=== PATIENT | male | born 1950 | race Two or more races ===

== ENCOUNTER 2019-04-01 17:34 | Inpatient (IN) | payer OTHER ==
[~2019-04-01] VITALS: Ht 170.2 cm; Wt 56.0 kg
[~2019-04-01 17:34] MED LIST: AMLO-147 PO; ASPI-817 PO; ATOR-2 PO; BENA40TA56 PO; DIPH25CA6 PO; SERT25TA83 PO
[2019-04-01 20:55] VITALS: BP 176/81; PULSE 64; RESP 18
[2019-04-01 21:00] VITALS: Ht 170.2 cm; Wt 56.0 kg
[2019-04-01] MEDS ORDERED: ONDANSETRON 4 MG INJ IV PRN (22:00)
[2019-04-01] MEDS ORDERED: ACETAMINOPHEN 325 MG TAB PO PRN (22:00)
[2019-04-01] MEDS ORDERED: NACL 0.9% 3 ML SYG IV SCH (22:00)
[2019-04-01] MEDS ORDERED: DIPHENHYDRAMINE 25 MG CAP PO PRN (22:00)
--- NOTE | 2019-04-01 22:34 | HP ---
Date/Time of Note Date/Time of Note DATE: 04/01/19 TIME: 22:34 Assessment/Plan VTE Prophylaxis Pharmacological prophylaxis: heparin Assessment/Plan Assessment/Plan 1. Recurrent syncope -Brain MRI/MRA in 2016 showed mild to moderate stenosis of cavernous and supraclinoid segments of the internal carotid arteries. -Patient claimed that he had an MRI 6-month ago. Currently unable to tell me where exactly was done. If he or family remembers during the day, will have the results faxed over here -Order CT angiogram or MRA of the head and neck 2. Bilateral foot numbness/weakness: No weakness or decrease in sensation on physical exam -This is chronic and has been going on for the past 3 years. Gabapentin was initiated by PCP without improvement -Check vitamin B12, folate, TSH -Consider neurology consult 3. Intermittent blurry vision -Follow-up head imaging as mentioned #1 4. CKD: Monitor closely Results 24hrs Laboratory Tests Test 04/01/19 21:49 Bedside Glucose 86 HPI/ROS Admit Date/Time Admit Date/Time Apr 01, 2019 at 20:50 Hx of Present Illness Patient is a 77-year-old male with a history of CKD, carotid stenosis who initially presented on outside hospital complaining of loss of consciousness. He was at a bookstore when he felt dizzy/lightheaded and had a syncopal episode. Denied any chest pain, shortness of breath or palpitations. Patient was admitted here for syncope in 2016. At that time carotid ultrasound shows stenosis 60-69%. Brain MRI/MRA at that time showed Mild to moderate stenosis of cavernous and supraclinoid segments of the internal carotid arteries.. He said he has occasionally been having similar symptoms since 2016. He said he had a brain MRI about 6 months ago but he was not able to tell me exactly where. He also complains of bilateral foot numbness and weakness for the past 3 years. He said he was started on gabapentin without relief. On further questioning, he also reported of occasional blurry vision and seeing " stars" PMH/Family/Social Past Medical History Past Surgical Hx: other (see HPI) Family History Significant Family History: no pertinent family hx Social History Alcohol Use: none Smoking Status: Never smoker Drug Use: none Exam Constitutional: No acute distress Head: normocephalic, atraumatic Eyes: EOMI, PERRL Respiratory: no distress Cardiovascular: regular rate and rhythm Gastrointestinal: soft Extremities: normal pulses Medications Current Medications IV Flush (NS 3 ml) 3 ml PER PROTOCOL IV ; Start 04/01/19 at 22:00 Ondansetron HCl (Zofran Inj) 4 mg Q6H PRN IV NAUSEA/VOMITING; Start 04/01/19 at 22:00 Aspirin (Aspirin) 81 mg DAILY PO ; Start 04/02/19 at 09:00 Acetaminophen (Tylenol Tab) 650 mg Q6H PRN PO .PAIN 1-3 OR TEMP; Start 04/01/19 at 22:00 Amlodipine Besylate (Norvasc) 10 mg DAILY PO ; Start 04/02/19 at 09:00 Atorvastatin Calcium (Lipitor) 80 mg HS PO ; Start 04/02/19 at 21:00 Benazepril HCl (Lotensin) 40 mg DAILY PO ; Start 04/02/19 at 09:00 Diphenhydramine HCl (Benadryl) 25 mg QHS PRN PO ITCHING; Start 04/01/19 at 22:00 Sertraline HCl (Zoloft) 25 mg DAILY PO ; Start 04/02/19 at 09:00 Coded Allergies: No Known Allergy (Unverified , 09/04/16) Family History Significant Family History: no pertinent family hx Exam/Review of Systems Vital Signs Vitals Vital Signs Date Temp Pulse Resp B/P (MAP) Pulse Ox O2 O2 Flow FiO2 Time Delivery Rate 04/01/19 98.1 64 18 176/81 97 Room Air 20:55 (112) ZENOBIA BLANK MD Apr 01, 2019 22:34
[2019-04-02] VITALS (8 sets, daily range): BP systolic 115–170; BP diastolic 63–74; PULSE 52–63; RESP 16–18
[2019-04-02] MEDS ORDERED: SOD CHLORIDE 0.9% 500 ML IV ONE (02:00)
[2019-04-02] MEDS ORDERED: ASPIRIN (EC) 81 MG TAB PO SCH (09:00)
[2019-04-02] MEDS: SERTRALINE 50 MG TAB PO SCH (09:22)
[2019-04-02] MEDS: BENAZEPRIL 40 MG TAB PO SCH (09:22)
[2019-04-02] MEDS: AMLODIPINE 10 MG TAB PO SCH (09:23)
[2019-04-02] MEDS: ASPIRIN 81 MG TAB PO SCH (09:23)
--- NOTE | 2019-04-02 14:26 | PN ---
Date/Time of Note Date/Time of Note DATE: 04/02/19 TIME: 14:15 Assessment/Plan VTE Prophylaxis Risk score (from Ns)>0 risk: 3 SCD applied (from Ns): Yes Pharmacological prophylaxis: other Pharm contraindication: low risk/ambulating Lines/Catheters [facility] Sal[facility] Assessment/Plan Assessment/Plan 1. Recurrent syncope, with carotid stenosis, MRA to evaluate the severity, follow up with MRI 2. Intermittent blurry vision, follow up with MRI 3. CKD, stage 3, follow up with BMP 4. Normocytic anemia, CKD related, follow up with H/H 5. Bilateral foot numbness/weakness, probably peripheral neuropathy 6. HTN, on norvasc and benazepril 7. Dyslipidemia, on lipitor 8. DVT prophylaxis: SCDs Result Diagram: 04/02/195604/02/1956 Results 24hrs Laboratory Tests Test 04/01/19 21:49 04/02/19 00:57 04/02/19 05:52 Bedside Glucose 86 White Blood Count 9.4 Red Blood Count 3.55 L Hemoglobin 10.5 L Hematocrit 32.4 L Mean Corpuscular Volume 91.3 Mean Corpuscular Hemoglobin 29.6 Mean Corpuscular Hemoglobin Concent 32.4 Red Cell Distribution Width 15.0 H Platelet Count 96 L Mean Platelet Volume 11.8 H Immature Granulocytes % 0.300 Neutrophils % 60.8 Lymphocytes % 24.4 Monocytes % 8.8 Eosinophils % 5.3 Basophils % 0.4 Nucleated Red Blood Cells % 0.0 Immature Granulocytes # 0.030 Neutrophils # 5.7 Lymphocytes # 2.3 Monocytes # 0.8 Eosinophils # 0.5 Basophils # 0.0 Nucleated Red Blood Cells # 0.0 Sodium Level 142 Potassium Level 4.8 Chloride Level 114 H Carbon Dioxide Level 21 Anion Gap 7 Blood Urea Nitrogen 47 H Creatinine 2.34 H Est Glomerular Filtrat Rate mL/min Glucose Level 97 Hemoglobin A1c 5.9 Calcium Level 9.1 Magnesium Level 1.9 Total Bilirubin 0.4 Direct Bilirubin 0.00 Indirect Bilirubin 0.4 Aspartate Amino Transf (AST/SGOT) 30 Alanine Aminotransferase (ALT/SGPT) 25 Alkaline Phosphatase 69 Creatine Kinase 416 H 386 H Creatine Kinase Index 1.6 1.5 Creatinine Kinase MB (Mass) 6.56 H 5.90 H Troponin I < 0.012 0.015 Total Protein 7.2 Albumin 3.8 Globulin 3.40 H Albumin/Globulin Ratio 1.11 Thyroid Stimulating Hormone (TSH) 1.780 Subjective 24 Hr Interval Summary Free Text/Dictation no dizziness today. numbness on both feet Exam/Review of Systems Exam Vitals Vital Signs Date Temp Pulse Resp B/P (MAP) Pulse Ox O2 O2 Flow FiO2 Time Delivery Rate 04/02/19 98.0 62 18 151/73 98 12:46 (99) 04/02/19 Room Air 04:16 Intake and Output 04/01/19 04/01/19 04/02/19 1515:00 23:00 07:00 IntakeIntake Total 240 ml 800 ml BalanceBalance 240 ml 800 ml Constitutional: alert, oriented, well developed Psych: no complaints Head: normocephalic, atraumatic Eyes: nl conjunctiva, EOMI, nl lids ENMT: nl external ears & nose, nl lips & teeth, nl nasal mucosa & septum Neck: supple, non-tender Respiratory: clear to auscultation, normal air movement; No congested cough, No crackles/rales, No diminished breath sounds, No intercostal retraction, No labored breathing, No respirations, No tactile fremitus, No wheezing, No other Cardiovascular: regular rate and rhythm, nl pulses; No bruits, No diastolic murmur, No edema, No gallop, No irregular rhythm, No jugular venous distention (JVD), No murmurs/extra sounds, No rub, No systolic murmur, No S3, No S4, No other Gastrointestinal: soft, nl liver, spleen, non-tender Musculoskeletal: nl extremities to inspection Extremities: normal pulses; No calf tenderness, No cyanosis, No clubbing, No edema, No pitting pedal edema, No palpable cord, No tenderness, No other Neurological: RECRUITMENT ASSISTANT II-XII intact, nl mental status, nl speech, nl strength Skin: nl turgor Results Results 24hrs Laboratory Tests Test 04/01/19 21:49 04/02/19 00:57 04/02/19 05:52 Bedside Glucose 86 White Blood Count 9.4 Red Blood Count 3.55 L Hemoglobin 10.5 L Hematocrit 32.4 L Mean Corpuscular Volume 91.3 Mean Corpuscular Hemoglobin 29.6 Mean Corpuscular Hemoglobin Concent 32.4 Red Cell Distribution Width 15.0 H Platelet Count 96 L Mean Platelet Volume 11.8 H Immature Granulocytes % 0.300 Neutrophils % 60.8 Lymphocytes % 24.4 Monocytes % 8.8 Eosinophils % 5.3 Basophils % 0.4 Nucleated Red Blood Cells % 0.0 Immature Granulocytes # 0.030 Neutrophils # 5.7 Lymphocytes # 2.3 Monocytes # 0.8 Eosinophils # 0.5 Basophils # 0.0 Nucleated Red Blood Cells # 0.0 Sodium Level 142 Potassium Level 4.8 Chloride Level 114 H Carbon Dioxide Level 21 Anion Gap 7 Blood Urea Nitrogen 47 H Creatinine 2.34 H Est Glomerular Filtrat Rate mL/min Glucose Level 97 Hemoglobin A1c 5.9 Calcium Level 9.1 Magnesium Level 1.9 Total Bilirubin 0.4 Direct Bilirubin 0.00 Indirect Bilirubin 0.4 Aspartate Amino Transf (AST/SGOT) 30 Alanine Aminotransferase (ALT/SGPT) 25 Alkaline Phosphatase 69 Creatine Kinase 416 H 386 H Creatine Kinase Index 1.6 1.5 Creatinine Kinase MB (Mass) 6.56 H 5.90 H Troponin I < 0.012 0.015 Total Protein 7.2 Albumin 3.8 Globulin 3.40 H Albumin/Globulin Ratio 1.11 Thyroid Stimulating Hormone (TSH) 1.780 Medications Medication Current Medications IV Flush (NS 3 ml) 3 ml PER PROTOCOL IV ; Start 04/01/19 at 22:00 Ondansetron HCl (Zofran Inj) 4 mg Q6H PRN IV NAUSEA/VOMITING; Start 04/01/19 at 22:00 Aspirin (Aspirin) 81 mg DAILY PO Last administered on 04/02/19at 09:23; Admin Dose 81 MG; Start 04/02/19 at 09:00 Acetaminophen (Tylenol Tab) 650 mg Q6H PRN PO .PAIN 1-3 OR TEMP; Start 04/01/19 at 22:00 Amlodipine Besylate (Norvasc) 10 mg DAILY PO Last administered on 04/02/19at 09:23; Admin Dose 10 MG; Start 04/02/19 at 09:00 Atorvastatin Calcium (Lipitor) 80 mg HS PO ; Start 04/02/19 at 21:00 Benazepril HCl (Lotensin) 40 mg DAILY PO Last administered on 04/02/19at 09:22; Admin Dose 40 MG; Start 04/02/19 at 09:00 Diphenhydramine HCl (Benadryl) 25 mg QHS PRN PO ITCHING; Start 04/01/19 at 22:00 Sertraline HCl (Zoloft) 25 mg DAILY PO Last administered on 04/02/19at 09:22; Admin Dose 25 MG; Start 04/02/19 at 09:00 ALEXIS BOWDEN MD Apr 02, 2019 14:26
--- NOTE | 2019-04-02 18:09 | RADRPT ---
Echocardiogram Report Patient Name: JEFF JACKSONPatient ID: [id number] : [id number] (69y 2m)Study Date: 04/02/2019 9:54:14 AM Gender: MAccession #: [id number] Tech: Bro Yu [facility] Location: [facility] Ref.Physician: ZENOBIA BLANK Height(Cm): BSA: Weight(Kg): Quality: AdequateOrder Physician: ZENOBIA BLANK Account #: Procedures: Echocardiographic Report: Transthoracic echocardiogram with complete 2D, M-Mode, and doppler examination. Indications: Syncope. Measurements: 2D/M Mode Doppler Measurement Value Normal Range Measurement Value Normal Range LVIDd 2D 3.8 [ 4.2 - 5.8 ] cm AV Peak Jayant 1.5 [ 100.0 - 170.0 ] cm/sec LVIDs 2D 2.4 [ 2.5 - 4.0 ] cm AV Peak PG 9.0 [ 2.0 - 9.0 ] mmHg LVPWd 2D 1.0 [ 0.6 - 1.0 ] cm LVOT Peak Jayant 1.3 [ 70.0 - 110.0 ] cm/sec IVSd 2D 1.2 [ 0.6 - 1.0 ] cm LVOT Peak PG 7.0 [ 2.0 - 6.0 ] mmHg AoR Diam 2D 2.3 [ 2.6 - 3.4 ] cm MV E Peak Jayant 0.9 [ 60.0 - 130.0 ] cm/sec EDV 2D 60.0 [ 62.0 - 150.0 ] ml MV A Peak Jayant 0.8 [ 100.0 - 120.0 ] cm/sec ESV 2D 20.2 [ 21.0 - 61.0 ] ml MV E/A 1.2 [ 0.8 - 1.5 ] ratio EF 2D 66.3 [ 52.0 - 72.0 ] percent MV Decel Time 151 [ 104 - 258 ] msec LA Dimen 2D 3.1 [ 3.0 - 4.0 ] cm Lat E` Jayant 0.1 [ 10.0 - 15.0 ] cm/sec Lateral E/E` 11.7 [ 1.0 - 2.0 ] ratio Med E` Jayant 0.1 cm/sec MV E/A 1.2 [ 0.8 - 1.5 ] ratio TR Peak Jayant 2.5 [ 100.0 - 280.0 ] cm/sec TR Peak PG 25.0 mmHg RVSP 28.0 [ 10.0 - 36.0 ] mmHg Findings: Left Ventricle: Normal left ventricular systolic function. Normal left ventricular cavity size. Mild hypertrophy of the basal septum. Ejection fraction is visually estimated at 65 %. Tissue Doppler/Mitral Doppler indices are consistent with impaired relaxation (Stage I diastolic dysfunction). No left ventricular outflow tract obstruction. Right Ventricle: Normal right ventricular size. Normal right ventricular systolic function. Left Atrium: The left atrium is normal in size. Right Atrium: The right atrium is normal in size. Mitral Valve: Mild mitral leaflet calcification. Mild mitral annular calcification. Trace mitral regurgitation. Aortic Valve: No significant aortic stenosis or insufficiency. Aortic cusps appear mildly calcified. Tricuspid Valve: Normal appearance of the tricuspid valve. The estimated Peak RVSP is 28 mmHg. There is mild tricuspid regurgitation. Pulmonic Valve: Pulmonic valve not well visualized. Pericardium: Normal pericardium with no significant pericardial effusion. Aorta: Normal aortic root. IVC: Normal size and normal respiratory collapse consistent with normal right atrial pressure. Conclusions: Basal septal hypertrophy with normal systolic function. Grade 1 diastolic dysfunction. Trace mitral regurgitation. Mild tricuspid regurgitation with normal pulmonary pressures. Electronically Signed By: Tammy Jiménez 2019-04-02 18:08:05 PDT
[2019-04-02] MEDS: ATORVASTATIN 80 MG TAB PO SCH (21:30)
[2019-04-03] VITALS (9 sets, daily range): BP systolic 99–170; BP diastolic 57–79; PULSE 56–89; RESP 15–22
[2019-04-03] MEDS ORDERED: hydrALAzine 20 MG INJ IV ONE (01:30)
[2019-04-03] MEDS: SERTRALINE 50 MG TAB PO SCH (09:30)
[2019-04-03] MEDS: AMLODIPINE 10 MG TAB PO SCH (09:30)
[2019-04-03] MEDS: BENAZEPRIL 40 MG TAB PO SCH (09:30)
[2019-04-03] MEDS: ASPIRIN 81 MG TAB PO SCH (09:30)
--- NOTE | 2019-04-03 13:25 | PN ---
Date/Time of Note Date/Time of Note DATE: 04/03/19 TIME: 13:12 Assessment/Plan VTE Prophylaxis Risk score (from Ns)>0 risk: 3 SCD applied (from Ns): Yes Pharmacological prophylaxis: heparin Lines/Catheters IV Catheter Type (from Nrs): Saline Lock Assessment/Plan Assessment/Plan 1. Recurrent syncope, ? etiology, will discuss with stores assistant and neurologist 2. Bilateral intracranial moderate to severe bilateral intracranial internal carotid artery, neurology consult 3. Intraventricular septal hypertrophy, sent message to Dr. Jiménez to review the echo to check if it is severe enough to cause syncope, change norvasc to cardizem 4. CKD, stage 3, follow up with BMP 5. Normocytic anemia, CKD related, follow up with H/H 6. Bilateral foot numbness/weakness, probably peripheral neuropathy 7. HTN, on norvasc and benazepril 8. Dyslipidemia, on lipitor 9. DVT prophylaxis: heparin Result Diagram: 04/02/19 0057 04/03/19 0539 Results 24hrs Laboratory Tests Test 04/03/19 05:39 Sodium Level 141 Potassium Level 4.5 Chloride Level 114 H Carbon Dioxide Level 19 L Anion Gap 8 Blood Urea Nitrogen 36 #H Creatinine 1.97 H Est Glomerular Filtrat Rate mL/min Glucose Level 99 Calcium Level 9.5 Triglycerides Level 79 Cholesterol Level 116 LDL Cholesterol, Calculated 41 HDL Cholesterol 59 Cholesterol/HDL Ratio 1.9 Vitamin B12 Level 368 Folate 8.7 Subjective 24 Hr Interval Summary Free Text/Dictation no event, no syncope Exam/Review of Systems Exam Vitals Vital Signs Date Temp Pulse Resp B/P (MAP) Pulse Ox O2 O2 Flow FiO2 Time Delivery Rate 04/03/19 98.1 67 16 99/57 (71) 99 11:27 04/03/19 Room Air 07:22 Intake and Output 04/02/19 04/02/19 04/03/19 1414:59 22:59 06:59 IntakeIntake Total 720 ml 360 ml OutputOutput Total 2 ml 200 ml BalanceBalance 718 ml 360 ml -200 ml Constitutional: alert, oriented, well developed Head: normocephalic, atraumatic Eyes: nl conjunctiva, EOMI, nl lids ENMT: nl external ears & nose, nl lips & teeth, nl nasal mucosa & septum Neck: supple, non-tender Respiratory: clear to auscultation, normal air movement; No congested cough, No crackles/rales, No diminished breath sounds, No intercostal retraction, No labored breathing, No respirations, No tactile fremitus, No wheezing, No other Cardiovascular: regular rate and rhythm, nl pulses Gastrointestinal: soft, nl liver, spleen, non-tender Musculoskeletal: nl extremities to inspection Extremities: normal pulses; No calf tenderness, No cyanosis, No clubbing, No edema, No pitting pedal edema, No palpable cord, No tenderness, No other Neurological: FERMENTATION MANAGER II-XII intact, nl mental status, nl speech, nl strength Results Results 24hrs Laboratory Tests Test 04/03/19 05:39 Sodium Level 141 Potassium Level 4.5 Chloride Level 114 H Carbon Dioxide Level 19 L Anion Gap 8 Blood Urea Nitrogen 36 #H Creatinine 1.97 H Est Glomerular Filtrat Rate mL/min Glucose Level 99 Calcium Level 9.5 Triglycerides Level 79 Cholesterol Level 116 LDL Cholesterol, Calculated 41 HDL Cholesterol 59 Cholesterol/HDL Ratio 1.9 Vitamin B12 Level 368 Folate 8.7 Medications Medication Current Medications IV Flush (NS 3 ml) 3 ml PER PROTOCOL IV ; Start 04/01/19 at 22:00 Ondansetron HCl (Zofran Inj) 4 mg Q6H PRN IV NAUSEA/VOMITING; Start 04/01/19 at 22:00 Aspirin (Aspirin) 81 mg DAILY PO Last administered on 04/03/19at 09:30; Admin Dose 81 MG; Start 04/02/19 at 09:00 Acetaminophen (Tylenol Tab) 650 mg Q6H PRN PO .PAIN 1-3 OR TEMP; Start 04/01/19 at 22:00 Amlodipine Besylate (Norvasc) 10 mg DAILY PO Last administered on 04/03/19at 09:30; Admin Dose 10 MG; Start 04/02/19 at 09:00 Atorvastatin Calcium (Lipitor) 80 mg HS PO Last administered on 04/02/19at 21:30; Admin Dose 80 MG; Start 04/02/19 at 21:00 Benazepril HCl (Lotensin) 40 mg DAILY PO Last administered on 04/03/19at 09:30; Admin Dose 40 MG; Start 04/02/19 at 09:00 Diphenhydramine HCl (Benadryl) 25 mg QHS PRN PO ITCHING Last administered on 04/03/19at 00:59; Admin Dose 25 MG; Start 04/01/19 at 22:00 Sertraline HCl (Zoloft) 25 mg DAILY PO Last administered on 04/03/19at 09:30; Admin Dose 25 MG; Start 04/02/19 at 09:00 ALEXIS BOWDEN MD Apr 03, 2019 13:22
[2019-04-03] MEDS: DILTIAZEM (CD) 120 MG CAP PO SCH (14:04)
[2019-04-03] MEDS: ATORVASTATIN 80 MG TAB PO SCH (20:11)
[2019-04-04] VITALS (7 sets, daily range): BP systolic 130–184; BP diastolic 66–96; PULSE 56–62; RESP 18–22
[2019-04-04] MEDS: DILTIAZEM (CD) 120 MG CAP PO SCH (08:28)
[2019-04-04] MEDS: ASPIRIN 81 MG TAB PO SCH (08:29)
[2019-04-04] MEDS: SERTRALINE 50 MG TAB PO SCH (08:29)
[2019-04-04] MEDS ORDERED: BENAZEPRIL 20 MG TAB PO SCH (09:00)
--- NOTE | 2019-04-04 09:49 | CONSI ---
Assessment/Plan Assessment/Plan Assessment/Plan (Recall) 69 M c/ multiple comorbidities, who presents for evaluation following transient LOC.. The clinical picture is most consistent w/ recurrent syncope. A focal ASSISTANT CENTER MANAGER process is unlikely.. MRI brain is reassuringly negative for an acute intracranial process. P: Orthostatic vitals UA Other management and supportive care per primary Will follow Consultation Date/Type/Reason Admit Date/Time Apr 01, 2019 at 20:50 Type of Consult Neurology Reason for Consultation recurrent LOC Requesting Provider: ALEXIS BOWDEN MD Date/Time of Note DATE: 04/04/19 TIME: 09:41 Hx of Present Illness Patient is a 77-year-old male with a history of CKD, carotid stenosis who in itially presented on outside hospital complaining of loss of consciousness. He was at a bookstore when he felt dizzy/lightheaded and lost consciousness. Similar episode 2 years ago while using the restroom a home.. Denied any chest pain, shortness of breath or palpitations. Patient was admitt ed here for syncope in 2016. At that time carotid ultrasound shows stenosis 60- 69%. Brain MRI/MRA at that time showed Mild to moderate stenosis of cavernous and supraclinoid segments of the internal carotid arteries.. He said he has occasionally been having similar symptoms since 2016. He said he had a brain MRI about 6 months ago but he was not able to tell me exactly where. He also complains of bilateral foot numbness and weakness for the past 3 years. He said he was started on gabapentin without relief. On further questioning, he also reported of occasional blurry vision and seeing " stars" per HPI Objective Exam Vitals Vital Signs Date Temp Pulse Resp B/P (MAP) Pulse Ox O2 O2 Flow FiO2 Time Delivery Rate 04/04/19 97.8 58 22 130/70 96 Room Air 07:40 (90) Intake and Output 04/03/19 04/03/19 04/04/19 1515:00 23:00 07:00 IntakeIntake Total 350 ml 250 ml 300 ml BalanceBalance 350 ml 250 ml 300 ml Exam PE: Gen Appearance: No Apparent Distress; thin HEENT: Normocephalic Cardiovascular: Regular rate Abdomen: Soft Extremities: Dry NE: The patient was alert and oriented. Language was normal. Fund of knowledge was adequate. Pupils were equal and reactive to light. There was no afferent pupillary defect. Visual de la rosa were normal. Funduscopic examination was limited. Extra-ocular movements were full. Ptosis was absent. There was no nystagmus. Facial sensation was normal. Face was symmetric with normal strength. Hearing was somewhat diminished. Palate movements were normal. Neck strength was normal. There was normal tongue bulk and speed of movement. Tone was normal. Muscle bulk was normal. I did not see fasciculations. Arms and legs were symmetric.. Vibration sensation was reduced distally. Temperature and pinprick sensation was normal. Rapid alternating movements were normal. There was no dysmetria. There was no intention tremor. Gait was deferred due to bedrest. Arm and leg reflexes were symmetric. Villagomez's sign was absent. Plantar r esponses were flexor. Results Result Diagram: 04/02/19 0057 04/04/19 0515 Results 24hrs Laboratory Tests Test 04/04/19 05:15 Sodium Level 144 Potassium Level 4.8 Chloride Level 111 H Carbon Dioxide Level 21 Anion Gap 12 Blood Urea Nitrogen 38 H Creatinine 2.12 H Est Glomerular Filtrat Rate mL/min Glucose Level 94 Calcium Level 9.8 Past Medical History reviewed Home Meds Active Scripts Atorvastatin* (Atorvastatin*) 80 Mg Tablet, 80 MG PO HS, #90 TAB Prov:TIESHA CARTER 09/06/16 Aspirin* (Aspirin* EC) 81 Mg Tablet.dr, 81 MG PO DAILY, #90 1 Refill Prov:TIESHA CARTER 09/06/16 Benazepril Hcl* (Benazepril Hcl*) 40 Mg Tablet, 40 MG PO DAILY, #90 TAB 1 Refill Prov:TIESHA CARTER 09/06/16 Amlodipine Besylate* (Amlodipine Besylate*) 10 Mg Tablet, 10 MG PO DAILY, #90 TAB 1 Refill Prov:TIESHA CARTER 09/06/16 Reported Medications Diphenhydramine Hcl* (Diphenhydramine Hcl*) 25 Mg Capsule, 25 MG PO QHS PRN for ITCHING, CAP 09/04/16 Sertraline Hcl* (Sertraline Hcl*) 25 Mg Tablet, 25 MG PO DAILY, #30 TAB 09/04/16 Medications Current Medications IV Flush (NS 3 ml) 3 ml PER PROTOCOL IV ; Start 04/01/19 at 22:00 Ondansetron HCl (Zofran Inj) 4 mg Q6H PRN IV NAUSEA/VOMITING; Start 04/01/19 at 22:00 Aspirin (Aspirin) 81 mg DAILY PO Last administered on 04/04/19 08:29; Admin Dose 81 MG; Start 04/02/19 at 09:00 Acetaminophen (Tylenol Tab) 650 mg Q6H PRN PO .PAIN 1-3 OR TEMP; Start 04/01/19 at 22:00 Atorvastatin Calcium (Lipitor) 80 mg HS PO Last administered on 04/03/19at 20:11; Admin Dose 80 MG; Start 04/02/19 at 21:00 Diphenhydramine HCl (Benadryl) 25 mg QHS PRN PO ITCHING Last administered on 04/03/19at 00:59; Admin Dose 25 MG; Start 04/01/19 at 22:00 Sertraline HCl (Zoloft) 25 mg DAILY PO Last administered on 04/04/19 08:29; Admin Dose 25 MG; Start 04/02/19 at 09:00 Benazepril HCl (Lotensin) 20 mg DAILY PO Last administered on 04/04/19 08:28; Admin Dose 20 MG; Start 04/04/19 at 09:00 Diltiazem HCl (Cardizem Cd) 120 mg DAILY PO Last administered on 04/04/19 08:28; Admin Dose 120 MG; Start 04/03/19 at 13:30 Allergies: Coded Allergies: No Known Allergy (Unverified , 09/04/16) Social History Smoking Status: Never smoker CARLA MORGAN Apr 04, 2019 09:49
[2019-04-04] MEDS ORDERED: BENA20TA4 PO ×2 (13:08→13:21)
[2019-04-04] MEDS ORDERED: DILT120C77 PO (13:20)
--- NOTE | 2019-04-04 13:35 | DS ---
Date/Time of Note Date/Time of Note DATE: 04/04/19 TIME: 13:22 Discharge Summary Admission/Discharge Info Admit Date/Time Apr 01, 2019 at 20:50 Discharge Date/Time Discharge Diagnosis 1. Recurrent syncope, probably liable BP related, medication adjusted, follow up with PCP 2. 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 Intraventricular septal hypertrophy, mild per Dr. Jiménez, I changed norvasc to cardizem for HTN 4. CKD, stage 3, stable, follow up with BMP 5. Normocytic anemia, CKD related, follow up with PCP 6. Bilateral foot numbness/weakness, probably peripheral neuropathy, follow up with PCP 7. HTN, better controlled with cardizem and benazepril 8. Dyslipidemia, on lipitor Patient Condition: Stable Procedures PROCEDURE: MRA Brain. CLINICAL INDICATION: Blurry vision, syncope, and carotid stenosis TECHNIQUE: 3-D [id number] MR angiography of the intracranial vasculature was performed without contrast. Multiplanar reformatted and 3-D maximum intensity projection reconstructed images were then performed. COMPARISON: MR 09/05/2016; MR 09/05/2016 FINDINGS: Again seen are moderately severe stenoses of the intracranial internal carotid arteries. 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 Patent basilar artery. The superior cerebellar arteries and posterior cerebral arteries are patent. Flow is seen in the anterior and middle cerebral arteries. No aneurysm is seen. Note that less than 3 mm or thrombosed aneurysms may not be well seen with this technique. IMPRESSION: No significant change. Moderate to severe bilateral intracranial internal carotid artery stenoses but otherwise patent intracranial vasculature. Atretic distal right vertebral artery as seen previously. RPTAT: [facility] Physician Ren Date Time Electronically viewed and signed by Physician Ren on 04/03/2019 07:46 LE/ CC: ZENOBIA BLANK MD [id number] PROCEDURE: MR Brain without contrast. CLINICAL INDICATION: Blurry vision and syncope TECHNIQUE: Sagittal and axial T1 weighted, axial T2 weighted, coronal GRE, axial diffusion weighted with ADC mapping, and axial FLAIR imaging without contrast. COMPARISON: MR 09/05/2016 FINDINGS: No diffusion weighted abnormalities are seen to suggest the presence of acute ischemia or recent infarct. No hypointense signal abnormalities are seen on the GRE images to suggest the presence of blood degradation products. There is no evidence of intracranial hemorrhage, mass effect, or midline shift. No extra- axial fluid collections are seen.. Small old bilateral basal ganglia lacunar infarcts versus dilated perivascular spaces, similar to prior. Diffuse volume l oss is seen. Mild ex vacuo dilatation of the ventricles. Areas of increased FLAIR / T2 signal in the periventricular and deep white matter most likely due to chronic microvascular ischemic change. Normal flow voids are visible in the proximal intracranial arteries and dural sinuses, indicating patency.. Scattered mucoperiosteal thickening of the paranasal sinuses. IMPRESSION: Atrophy and chronic microvascular ischemic changes. No definite acute abnormality. RPTAT: [facility] Physician Ren Date Time Electronically viewed and signed by Elaine Cabrera Physician on 04/03/2019 07:50 LE/ CC: ZENOBIA BLANK MD [id number] Echocardiogram Report Patient Name: JEFF JACKSON : 1950 (69y 2m) Study Date: 04/02/2019 9:54:14 AM Gender: M Tech: rBo Yu [facility] Location: [facility] Ref.Physician: ZENOBIA BLANK Height(Cm): BSA: Weight(Kg): Quality: Adequate Order Physician: ZENOBIA BLANK Account #: Procedures: Echocardiographic Report: Transthoracic echocardiogram with complete 2D, M-Mode, and doppler examination. Indications: Syncope. Measurements: 2D/M Mode Doppler Measurement Value Normal Range Measurement Value Normal Range LVIDd 2D 3.8 [ 4.2 - 5.8 ] cm AV Peak Jayant 1.5 [ 100.0 - 170.0 ] cm/sec LVIDs 2D 2.4 [ 2.5 - 4.0 ] cm AV Peak PG 9.0 [ 2.0 - 9.0 ] mmHg LVPWd 2D 1.0 [ 0.6 - 1.0 ] cm LVOT Peak Jayant 1.3 [ 70.0 - 110.0 ] cm/sec IVSd 2D 1.2 [ 0.6 - 1.0 ] cm LVOT Peak PG 7.0 [ 2.0 - 6.0 ] mmHg AoR Diam 2D 2.3 [ 2.6 - 3.4 ] cm MV E Peak Jyaant 0.9 [ 60.0 - 130.0 ] cm/sec EDV 2D 60.0 [ 62.0 - 150.0 ] ml MV A Peak Jayant 0.8 [ 100.0 - 120.0 ] cm/sec ESV 2D 20.2 [ 21.0 - 61.0 ] ml MV E/A 1.2 [ 0.8 - 1.5 ] ratio EF 2D 66.3 [ 52.0 - 72.0 ] percent MV Decel Time 151 [ 104 - 258 ] msec LA Dimen 2D 3.1 [ 3.0 - 4.0 ] cm Lat E` Jayant 0.1 [ 10.0 - 15.0 ] cm/sec Lateral E/E` 11.7 [ 1.0 - 2.0 ] ratio Med E` Jayant 0.1 cm/sec MV E/A 1.2 [ 0.8 - 1.5 ] ratio TR Peak Jayant 2.5 [ 100.0 - 280.0 ] cm/sec TR Peak PG 25.0 mmHg RVSP 28.0 [ 10.0 - 36.0 ] mmHg Findings: Left Ventricle: Normal left ventricular systolic function. Normal left ventricular cavity size. Mild hypertrophy of the basal septum. Ejection fraction is visually estimated at 65 %. Tissue Doppler/Mitral Doppler indices are consistent with impaired relaxation (Stage I diastolic dysfunction). No left ventricular outflow tract obstruction. Right Ventricle: Normal right ventricular size. Normal right ventricular systolic function. Left Atrium: The left atrium is normal in size. Right Atrium: The right atrium is normal in size. Mitral Valve: Mild mitral leaflet calcification. Mild mitral annular calcification. Trace mitral regurgitation. Aortic Valve: No significant aortic stenosis or insufficiency. Aortic cusps appear mildly calcified. Tricuspid Valve: Normal appearance of the tricuspid valve. The estimated Peak RVSP is 28 mmHg. There is mild tricuspid regurgitation. Pulmonic Valve: Pulmonic valve not well visualized. Pericardium: Normal pericardium with no significant pericardial effusion. Aorta: Normal aortic root. IVC: Normal size and normal respiratory collapse consistent with normal right atrial pressure. Conclusions: Basal septal hypertrophy with normal systolic function. Grade 1 diastolic dysfunction. Trace mitral regurgitation. Mild tricuspid regurgitation with normal pulmonary pressures. Electronically Signed By: Tammy Jiménez 2019-04-02 18:08:05 [facility] Hospital Course Patient is a 77-year-old male with a history of CKD, carotid stenosis who initially presented on outside hospital complaining of loss of consciousness. He was at a bookstore when he felt dizzy/lightheaded and had a syncopal episode. Denied any chest pain, shortness of breath or palpitations. Patient was admitted here for syncope in 2016. At that time carotid ultrasound shows stenosis 60-69%. Brain MRI/MRA at that time showed Mild to moderate stenosis of cavernous and supraclinoid segments of the internal carotid arteries.. He said he has occasionally been having similar symptoms since 2016. He said he had a brain MRI about 6 months ago but he was not able to tell me exactly where. He also complains of bilateral foot numbness and weakness for the past 3 years. He said he was started on gabapentin without relief. 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 Echocardiography reveals mild basal Intraventricular septal hypertrophy that I discussed with Dr. Jiménez who does not feel it is the etiology of syncope either. He is on aspirin and lipitor for this. Patient's blood pressure are mainly on high side but once down to 99/57. The liable blood pressure could be the reason of syncope. I changed norvasc to cardizem with the concern of basal interventricular septal hypertrophy. Blood pressure is better controlled today. Patient needs to follow up with PCP for adj ustment of antihypertensives. Patient and his family are instructed to have PCP to repeat echo in 6 months. Home Meds Active Scripts Benazepril Hcl* (Benazepril Hcl*) 20 Mg Tablet, 20 MG PO DAILY for 30 Days, TAB Prov:ALEXIS BOWDEN MD 04/04/19 Diltiazem Hcl* (Cardizem CD*) 120 Mg Cap.sr.24h, 120 MG PO DAILY for 30 Days Prov:ALEXIS BOWDEN MD 04/04/19 Atorvastatin* (Atorvastatin*) 80 Mg Tablet, 80 MG PO HS, #90 TAB Prov:TIESHA CARTER 09/06/16 Aspirin* (Aspirin* EC) 81 Mg Tablet.dr, 81 MG PO DAILY, #90 1 Refill Prov:TIESHA CARTER 09/06/16 Reported Medications Diphenhydramine Hcl* (Diphenhydramine Hcl*) 25 Mg Capsule, 25 MG PO QHS PRN for ITCHING, CAP 09/04/16 Sertraline Hcl* (Sertraline Hcl*) 25 Mg Tablet, 25 MG PO DAILY, #30 TAB 09/04/16 Follow-up Plan PCP in one week Primary Care Provider Not On Staff Doctor Pending Labs Laboratory Tests Test 04/04/19 05:15 Sodium Level 144 mmol/L (135-144) Potassium Level 4.8 mmol/L (3.5-5.1) Chloride Level 111 mmol/L (97-110) Carbon Dioxide Level 21 mmol/L (21-31) Anion Gap 12 (5-13) Blood Urea Nitrogen 38 mg/dl (7-20) Creatinine 2.12 mg/dl (0.61-1.24) Est Glomerular Filtrat Rate mL/min mL/min (>60) Glucose Level 94 mg/dl (70-220) Calcium Level 9.8 mg/dl (8.4-10.2) ALEXIS BOWDEN MD Apr 04, 2019 13:32
== END 2019-04-04 14:48 | disposition home or self-care (01) | DRG 305 ==
LOC: 6WM 20:50
PROVIDERS: ADMIT Internal Medicine; ATTEND Internal Medicine
DX: I11.9 Hypertensive heart disease without heart failure (principal); G62.9 Polyneuropathy, unspecified; D63.1 Anemia in chronic kidney disease; I65.23 Occlusion and stenosis of bilateral carotid arteries; N18.3 Chronic kidney disease, stage 3 (moderate); D64.9 Anemia, unspecified; I12.9 Hypertensive chronic kidney disease with stage 1 through stage 4 chronic kidney disease, or unspecified chronic kidney disease; R55 Syncope and collapse; R20.0 Anesthesia of skin; H53.8 Other visual disturbances; E78.5 Hyperlipidemia, unspecified; Z79.82 Long term (current) use of aspirin
CPT/HCPCS: 70544; 70549; 70551; 76775; 80048; 80053; 80061; 81003; 82550; 82553; 82607; 82746; 82962; 83036; 83735; 84443; 84484; 85025; 93306; 97116; 97161; J0360; J7040